=== PATIENT | female | born 1950 | race Asian ===

== ENCOUNTER 2020-12-12 04:37 | Emergency (ER) | payer OTHER, MEDICARE, MEDICAID ==
[~2020-12-12] VITALS: Ht 152.4 cm; Wt 52.6 kg
--- NOTE | 2020-12-12 04:37 | NUR ---
Patient to ER bed 8 to gown for evaluation. Side rails up. Report given to self. Received patient to Er w/ c/o diarrhea and abd pain. "I must have eaten something bad yesterday after breakfast." Introduced self to patient, positioned for comfort and safety w/ bed to low position sr up.
[2020-12-12 04:43] VITALS: BP_SYST 129
--- NOTE | 2020-12-12 04:43 | NUR ---
ER Dr. Ferro at bedside examining patient.
[2020-12-12] MEDS ORDERED: MORPHINE 2 MG/ML INJ. SYRINGE IVP ONE (05:00)
[2020-12-12] MEDS ORDERED: ONDANSETRON HCL 4 MG/2 ML VIAL IVP ONE (05:00)
[2020-12-12] MEDS ORDERED: NACL 0.9% 1,000 ML IV ONE (05:00)
[2020-12-12 05:40] LABS: BASOPHILS % (AUTO) 0.2 % (0.0-2.0); EOSINOPHILS % (AUTO) 1.1 % (0.0-4.0); HEMATOCRIT 40.7 % (36-48); HEMOGLOBIN 13.6 g/dL (12.0-16.0); LYMPHOCYTES # (AUTO) 1.3 K/uL (1.0-5.5); LYMPHOCYTES % (AUTO) 30.6 % (20.5-51.5); MEAN CORPUSCULAR HEMOGLOBIN 31 pg (27-31); MEAN CORPUSCULAR HGB CONC 33 % (32-36); MEAN CORPUSCULAR VOLUME 93 fL (79.0-98.0); MONOCYTES # (AUTO) 0.3 K/uL (0.0-1.0); MONOCYTES % (AUTO) 6.7 % (1.7-9.3); NEUTROPHILS # (AUTO) 2.7 K/uL (1.8-7.7); NEUTROPHILS % (AUTO) 61.4 % (40.0-70.0); PLATELET COUNT (AUTO) 226 K/uL (130-430); RED CELL DISTRIBUTION WIDTH 14.1 % (9.0-15.0); WHITE BLOOD COUNT (AUTO) 4.3 K/uL (4.8-10.8)
--- NOTE | 2020-12-12 05:40 | NUR ---
# 20 gauge angiocath placed to left hand. Use of asceptic technique. Opsite placed over site. Blood return noted. Blood for lab drawn from site. Flushed with 10 cc of normal saline. No evidence of infiltration noted. Patient tolerated well.
--- NOTE | 2020-12-12 05:47 | NUR ---
patient medicated as ordered. Will observe for any adverse reaction. Bed to low position sr up. continue to monitor.
[2020-12-12 05:50] LABS: CALCIUM 8.7 mg/dL (8.4-11.0); CREATININE 0.73 mg/dL (0.55-1.30)
[2020-12-12 05:55] LABS: ALBUMIN 3.7 g/dL (3.4-4.8); TOTAL BILIRUBIN 0.6 mg/dL (0.0-1.0)
[2020-12-12] MEDS ORDERED: POTASSIUM CHLORIDE 20 MEQ TAB.PRT.SR PO ONE (06:30)
--- NOTE | 2020-12-12 06:35 | NUR ---
patient medicated as ordered w/ [id number] po. Will observe for any adverse reaction. Patient does not wish to proceed with medical care recommended by MD Ferro. Patient given information related to possible complications, up to and including , which could occur as a result of leaving hospital at this time. Patient verbalizes understanding of risks involved leaving against medical advice. Patient has signed AMA form.
[2020-12-12] MEDS ORDERED: ACET1TAB23 PO ×2 (06:39→06:44)
--- NOTE | 2020-12-12 06:49 | NUR ---
Patient given written and verbal discharge instructions and verbalizes understanding. ER MD discussed with patient the results and treatment provided. Patient in stable condition. Rx of given. Patient educated on pain management and to follow up with PMD. Pain Scale [0. Opportunity for questions provided and answered. Medication side effect fact sheet provided.
== END 2020-12-12 06:49 | disposition left against medical advice (07) ==
LOC: SED 04:37
DX: R10.30 Lower abdominal pain, unspecified (principal); E87.6 Hypokalemia; K21.9 Gastro-esophageal reflux disease without esophagitis; Z88.0 Allergy status to penicillin; Z88.6 Allergy status to analgesic agent
CPT/HCPCS: 36415; 80053; 83690; 85025; 96361; 96374; 96375; 99284; J2270; J2405; J7030